=== PATIENT | male | born 1995 | race Hispanic/Latino ===

== ENCOUNTER 2020-12-11 11:34 | Inpatient (IN) | payer OTHER, SELFPAY ==
[~2020-12-11] VITALS: Ht 182.9 cm; Wt 113.4 kg
[2020-12-11 11:51] LABS: APPEARANCE,URINE Clear (CLEAR); BILIRUBIN,URINE Negative (NEGATIVE); COLOR,URINE Yellow (YELLOW); GLUCOSE, URINE (UA) Negative (NEGATIVE); KETONES,URINE Negative (NEGATIVE); LEUKOCYTE ESTERASE ,URINE Negative (NEGATIVE); NITRATE,URINE Negative (NEGATIVE); OCCULT BLOOD,URINE Negative (NEGATIVE); PROTEIN,URINE Negative (NEGATIVE); UROBILINOGEN,URINE 0.2 mg/dL (0.2-1.0)
[2020-12-11 11:58] LABS: BASOPHILS % (AUTO) 0.6 % (0.0-5.0); EOSINOPHILS % (AUTO) 3.9 % (0.0-8.0); LYMPHOCYTES % (AUTO) 24.4 % (21.0-51.0); MEAN CORPUSCULAR HEMOGLOBIN 29.9 pg (27.0-33.0); MEAN CORPUSCULAR HGB CONC 35.3 g/dL (32.0-36.0); MEAN CORPUSCULAR VOLUME 84.6 fL (79-99); MONOCYTES % (AUTO) 7.1 % (3.0-13.0); NEUTROPHILS % (AUTO) 63.3 % (40.0-77.0); PLATELET COUNT (AUTO) 259 K/uL (130-400); RED BLOOD CELL COUNT(AUTO) 5.08 MIL/uL (4.50-6.20); RED CELL DISTRIBUTION WIDTH 12.2 % (11.0-15.5); WHITE BLOOD COUNT (AUTO) 10.5 K/uL (4.8-10.8)
[2020-12-11 12:09] LABS: CREATININE 1.3 mg/dL (0.5-1.5); POTASSIUM 3.8 mmol/L (3.5-5.1)
[2020-12-11] MEDS ORDERED: ONDANSETRON 4MG INJ ONE (12:11)
[2020-12-11] MEDS ORDERED: MORPHINE 2 MG SYG ONE (12:12)
[2020-12-11 12:14] LABS: ALBUMIN 4.5 g/dL (3.5-5.0); BILIRUBIN,TOTAL 0.7 mg/dL (0.2-1.0); TOTAL PROTEIN, SERUM 8.1 g/dL (6.0-8.3)
[2020-12-11] MEDS ORDERED: IOHEXOL-350 75 ML VIAL IV ONE (12:32)
[2020-12-11] MEDS ORDERED: ZOSYN 3.375GM+NS 50ML 50 ML IV ONE ×2 (13:57→19:01)
[2020-12-11] MEDS ORDERED: HYDRALAZINE 20MG/ML VIAL IV PRN (14:15)
[2020-12-11] MEDS ORDERED: ONDANSETRON 4MG INJ IVP PRN (14:15)
[2020-12-11] MEDS ORDERED: MORPHINE 4 MG SYG IV PRN (14:15)
[2020-12-11] MEDS: LACTATED RINGERS 1000ML 1,000 ML IV SCH ×2 (14:15→23:16)
[2020-12-11] MEDS ORDERED: LABETALOL 20MG SYG IV PRN (14:15)
[2020-12-11] MEDS ORDERED: DiphenhydrAMINE HCL 50 MG/ML VIAL IV PRN (14:15)
[2020-12-11] MEDS ORDERED: LACTATED RINGERS 1000ML 1,000 ML IV ONE (16:12)
[2020-12-11] MEDS ORDERED: FAMOTIDINE 20MG VIAL IV ONE (19:01)
[2020-12-11] MEDS: FAMOTIDINE 20MG VIAL IV SCH (19:16)
[2020-12-11] MEDS: ZOSYN 3.375GM+NS 50ML 50 ML IV SCH (19:16)
[2020-12-11] MEDS: KETOROLAC 15MG/ML VIAL (15MG/ML) IV PRN (19:16)
[2020-12-11 20:03] VITALS: BP 117/63
[2020-12-12] VITALS (7 sets, daily range): BP systolic 108–148; BP diastolic 61–78
[2020-12-12] MEDS: KETOROLAC 15MG/ML VIAL (15MG/ML) IV PRN ×3 (01:06→20:11)
[2020-12-12] MEDS: ZOSYN 3.375GM+NS 50ML 50 ML IV SCH ×3 (04:31→20:02)
[2020-12-12 05:22] LABS: BASOPHILS % (AUTO) 0.6 % (0.0-5.0); EOSINOPHILS % (AUTO) 4.2 % (0.0-8.0); HEMATOCRIT 41.5 % (42-54); LYMPHOCYTES % (AUTO) 28.6 % (21.0-51.0); MEAN CORPUSCULAR HEMOGLOBIN 29.3 pg (27.0-33.0); MEAN CORPUSCULAR VOLUME 86.1 fL (79-99); MONOCYTES % (AUTO) 8.8 % (3.0-13.0); NEUTROPHILS % (AUTO) 57.2 % (40.0-77.0); PLATELET COUNT (AUTO) 248 K/uL (130-400); RED BLOOD CELL COUNT(AUTO) 4.82 MIL/uL (4.50-6.20); RED CELL DISTRIBUTION WIDTH 12.2 % (11.0-15.5); WHITE BLOOD COUNT (AUTO) 9.9 K/uL (4.8-10.8)
[2020-12-12 05:31] LABS: CREATININE 1.5 mg/dL (0.5-1.5); POTASSIUM 3.8 mmol/L (3.5-5.1)
[2020-12-12] MEDS: FAMOTIDINE 20MG VIAL IV SCH ×2 (08:45→20:01)
[2020-12-12] MEDS: LACTATED RINGERS 1000ML 1,000 ML IV SCH ×2 (08:46→20:01)
[2020-12-12] MEDS ORDERED: DIATR MEGLU/DIATRIZOATE SODIUM 30 ML BOTTLE ONE (10:27)
[2020-12-12] MEDS ORDERED: IOHEXOL-350 75 ML VIAL IV ONE (15:03)
[2020-12-13 03:47] VITALS: BP 122/65
[2020-12-13] MEDS: ZOSYN 3.375GM+NS 50ML 50 ML IV SCH ×3 (04:26→20:34)
[2020-12-13] MEDS: LACTATED RINGERS 1000ML 1,000 ML IV SCH ×2 (05:20→16:40)
[2020-12-13] MEDS: KETOROLAC 15MG/ML VIAL (15MG/ML) IV PRN ×2 (05:21→22:36)
[2020-12-13 05:24] LABS: BASOPHILS % (AUTO) 0.3 % (0.0-5.0); EOSINOPHILS % (AUTO) 3.9 % (0.0-8.0); HEMATOCRIT 38.7 % (42-54); LYMPHOCYTES % (AUTO) 27.2 % (21.0-51.0); MEAN CORPUSCULAR HEMOGLOBIN 29.5 pg (27.0-33.0); MEAN CORPUSCULAR HGB CONC 34.6 g/dL (32.0-36.0); MEAN CORPUSCULAR VOLUME 85.2 fL (79-99); MONOCYTES % (AUTO) 8.6 % (3.0-13.0); NEUTROPHILS % (AUTO) 59.6 % (40.0-77.0); PLATELET COUNT (AUTO) 240 K/uL (130-400); RED BLOOD CELL COUNT(AUTO) 4.54 MIL/uL (4.50-6.20); RED CELL DISTRIBUTION WIDTH 11.9 % (11.0-15.5); WHITE BLOOD COUNT (AUTO) 9.3 K/uL (4.8-10.8)
[2020-12-13 05:36] LABS: CREATININE 1.3 mg/dL (0.5-1.5); POTASSIUM 3.5 mmol/L (3.5-5.1)
[2020-12-13 08:29] VITALS: BP 118/71
[2020-12-13] MEDS: FAMOTIDINE 20MG VIAL IV SCH ×2 (08:39→20:34)
[2020-12-13 12:26] VITALS: BP 147/73
[2020-12-13 16:04] VITALS: BP 113/69
[2020-12-13 19:36] VITALS: BP 133/78
[2020-12-13 23:23] VITALS: BP 121/82
[2020-12-14] MEDS: LACTATED RINGERS 1000ML 1,000 ML IV SCH (01:53)
[2020-12-14 03:46] VITALS: BP 144/79
[2020-12-14] MEDS: ZOSYN 3.375GM+NS 50ML 50 ML IV SCH (04:34)
[2020-12-14 05:20] LABS: HEMATOCRIT 40.2 % (42-54); MEAN CORPUSCULAR HEMOGLOBIN 29.5 pg (27.0-33.0); MEAN CORPUSCULAR HGB CONC 34.3 g/dL (32.0-36.0); MEAN CORPUSCULAR VOLUME 85.9 fL (79-99); RED BLOOD CELL COUNT(AUTO) 4.68 MIL/uL (4.50-6.20); WHITE BLOOD COUNT (AUTO) 8.5 K/uL (4.8-10.8)
[2020-12-14 05:46] LABS: CREATININE 1.3 mg/dL (0.5-1.5); POTASSIUM 3.8 mmol/L (3.5-5.1)
[2020-12-14] MEDS: FAMOTIDINE 20MG VIAL IV SCH (08:54)
[2020-12-14 09:00] VITALS: BP 126/79
== END 2020-12-14 11:30 | disposition home or self-care (01) | DRG 395 ==
LOC: EDH 11:34 → EDHIP 11:35 → INTOOBSV 11:35 → OBSVTOIN 11:35 → 4AH 16:25 → 3AH 21:01
PROVIDERS: ADMIT Internal Medicine Critical Care Medicine; ATTEND Internal Medicine Critical Care Medicine
DX: K35.80 Unspecified acute appendicitis (principal); K76.0 Fatty (change of) liver, not elsewhere classified; Z20.822 Contact with and (suspected) exposure to COVID-19; E66.9 Obesity, unspecified; Z68.33 Body mass index [BMI] 33.0-33.9, adult
CPT/HCPCS: 36415; 74177; 76705; 80048; 80053; 81003; 83605; 83690; 85025; 85027; 86140; 87426; G0378; J1200; J1885; J2405; J2543; J3490; J7120; Q9963; Q9967; U0003

== ENCOUNTER 2024-03-13 07:22 | Emergency (ER) | payer OTHER ==
[~2024-03-13] VITALS: Ht 182.9 cm; Wt 117.9 kg
[2024-03-13] MEDS: 0.9%NACL 1000ML 1,000 ML IV ONE (08:00)
[2024-03-13 08:14] LABS: BASOPHILS # (AUTO) 0.06 K/uL (0.00-0.20); BASOPHILS % (AUTO) 0.6 % (0.0-5.0); EOSINOPHILS # (AUTO) 0.28 K/uL (0.00-0.70); EOSINOPHILS % (AUTO) 2.8 % (0.0-8.0); HEMATOCRIT 41.9 % (42-54); IMMATURE GRANULOCYTE ABSOLUTE 0.14 K/uL (0-1); LYMPHOCYTES # (AUTO) 2.3 K/uL (1.0-4.8); MEAN CORPUSCULAR HEMOGLOBIN 29.6 pg (27.0-33.0); MEAN CORPUSCULAR HGB CONC 34.8 g/dL (32.0-36.0); MONOCYTES # (AUTO) 0.7 K/uL (0.1-1.0); MONOCYTES % (AUTO) 6.4 % (3.0-13.0); NEUTROPHILS # (AUTO) 6.7 K/uL (1.8-7.7); NEUTROPHILS % (AUTO) 65.8 % (40.0-77.0); PLATELET COUNT (AUTO) 304 K/uL (130-400); RED BLOOD CELL COUNT(AUTO) 4.93 MIL/uL (4.50-6.20); RED CELL DISTRIBUTION WIDTH 11.9 % (11.0-15.5); WHITE BLOOD COUNT (AUTO) 10.2 K/uL (4.8-10.8)
[2024-03-13 08:25] LABS: CREATININE 1.2 mg/dL (0.5-1.3); POTASSIUM 3.7 mmol/L (3.5-5.1)
[2024-03-13 08:30] LABS: ALBUMIN 4.3 g/dL (3.5-5.0); BILIRUBIN,TOTAL 0.3 mg/dL (0.2-1.0); TOTAL PROTEIN, SERUM 7.9 g/dL (6.0-8.3)
[2024-03-13 08:35] LABS: RAPID GROUP A STREP negative (NEGATIVE)
[2024-03-13 08:43] LABS: SARS-CoV-2, RNA, NAAT POSITIVE SARS CoV-2 (NEGATIVE)
[2024-03-13 08:45] LABS: INFLUENZA TYPE A Negative For Type A (NEGATIVE); INFLUENZA TYPE B Negative For Type B (NEGATIVE)
[2024-03-13] MEDS: KETOROLAC 15MG/ML VIAL (15MG/ML) IV ONE (08:56)
[2024-03-13] MEDS: ONDANSETRON 4MG INJ IVP ONE (08:56)
[2024-03-13] MEDS ORDERED: ONDA-243 PO (09:04)
[2024-03-13] MEDS ORDERED: AZIT250T9 PO (09:04)
[2024-03-13 09:07] VITALS: BP 133/74; PULSE 80; RESP 18; O2SAT 99
== END 2024-03-13 09:13 | disposition home or self-care (01) ==
LOC: EDH 07:22
DX: U07.1 COVID-19 (principal); Z79.899 Other long term (current) drug therapy; Z98.890 Other specified postprocedural states
CPT/HCPCS: 99284; 96374; 87635; 96361; 96375; 80053; 85025; 87880; 87804 ×2; 36415; J7030; J2405; J1885

== ENCOUNTER 2024-06-26 02:11 | Emergency (ER) | payer SELFPAY ==
[~2024-06-26] VITALS: Ht 182.9 cm; Wt 117.9 kg
[~2024-06-26 02:11] MED LIST: AZIT250T9 PO; ONDA-243 PO
[2024-06-26 02:36] LABS: RAPID GROUP A STREP negative (NEGATIVE)
[2024-06-26 02:40] LABS: SARS-CoV-2, RNA, NAAT NEGATIVE SARS CoV-2 (NEGATIVE)
[2024-06-26 02:45] LABS: INFLUENZA TYPE A Negative For Type A (NEGATIVE); INFLUENZA TYPE B Negative For Type B (NEGATIVE)
[2024-06-26 02:53] LABS: BASOPHILS # (AUTO) 0.03 K/uL (0.00-0.20); BASOPHILS % (AUTO) 0.3 % (0.0-5.0); EOSINOPHILS # (AUTO) 0.07 K/uL (0.00-0.70); EOSINOPHILS % (AUTO) 0.8 % (0.0-8.0); HEMATOCRIT 42.7 % (42-54); IMMATURE GRANULOCYTE ABSOLUTE 0.05 K/uL (0-1); LYMPHOCYTES # (AUTO) 1.6 K/uL (1.0-4.8); LYMPHOCYTES % (AUTO) 17.4 % (21.0-51.0); MEAN CORPUSCULAR HEMOGLOBIN 29.7 pg (27.0-33.0); MEAN CORPUSCULAR HGB CONC 35.1 g/dL (32.0-36.0); MEAN CORPUSCULAR VOLUME 84.6 fL (79-99); MONOCYTES # (AUTO) 0.3 K/uL (0.1-1.0); MONOCYTES % (AUTO) 3.7 % (3.0-13.0); NEUTROPHILS % (AUTO) 77.2 % (40.0-77.0); PLATELET COUNT (AUTO) 269 K/uL (130-400); RED BLOOD CELL COUNT(AUTO) 5.05 MIL/uL (4.50-6.20); RED CELL DISTRIBUTION WIDTH 11.9 % (11.0-15.5); WHITE BLOOD COUNT (AUTO) 9.1 K/uL (4.8-10.8)
[2024-06-26] MEDS: 0.9%NACL 1000ML 1,000 ML IV ONE (02:55)
[2024-06-26] MEDS: FAMOTIDINE 20MG VIAL IV ONE (02:56)
[2024-06-26] MEDS: ondanSETRON 4MG INJ IVP ONE (02:56)
[2024-06-26] MEDS: ketOROlac 15MG/ML VIAL (15MG/ML) IV ONE (02:56)
[2024-06-26 03:00] LABS: POTASSIUM 3.9 mmol/L (3.5-5.1)
--- NOTE | 2024-06-26 03:35 | ERN ---
General Chief Complaint: Flu Symptoms Stated Complaint: HEADACHE, N/D Time Seen by MD: 02:13 Time Seen by Midlevel: 02:13 Source: patient History of Present Illness Initial Comments Patient is a 29-year-old male with no significant past medical history presenting with multiple complaints. He states that around 2200 last night he began with a generalized headache that is rated 7/10. Shortly after he developed diarrhea and nausea. Denies taking any [id number] medication. He specifically denies any fever, chest pain, shortness for breath, vision changes, focal weakness, or any other symptoms at this time. Allergies: Coded Allergies: No Known Drug Allergies (Verified Allergy, Unknown, 12/11/20) Home Meds Active Scripts Ondansetron (Ondansetron Odt) 4 Mg Tab.rapdis, 4 MG PO BID for 7 Days, #14 TAB Prov:LAUREANO DELGADO 06/26/24 Ondansetron (Ondansetron Odt) 4 Mg Tab.rapdis, 4 MG PO BID for 7 Days, #14 TAB Prov:LAUREANO DELGADO 03/13/24 Azithromycin (Azithromycin) 250 Mg Tablet, 250 MG PO DAILY for 5 Days, #5 TAB Prov:LAUREANO DELGADO 03/13/24 Past Medical History Past Medical History: No Pertinent History Past Surgical History: Other Surgical History Other: PYLOROMYOTOMY ROS Dictation CONSTITUTIONAL: Negative except for HPI HEAD/FACE: Negative except for HPI EENT: Negative except for HPI RESPIRATORY: Negative except for HPI GASTROINTESTINAL/ABDOMINAL: Negative except for HPI GENITOURINARY: Negative except for HPI MUSCULOSKELETAL: Negative except for HPI INTEGUMENTARY: Negative except for HPI NEUROLOGICAL/PSYCH: Negative except for HPI HEMATOLOGIC/LYMPHATIC: Negative except for HPI All Systems Negative, Except as noted above. 13 point review of systems assessed and all negative except for above. Physical Exam Physical Exam Dictation Vital Signs reviewed General Appearance: Alert, oriented x 3, no acute distress, well developed, nourished. Head and Face: non-traumatic. Eyes: PERRL, pink conjunctivas, eyelid no trauma, anterior chamber with arcus senilis. Ears: Pinnas intact and no signs of trauma or erythema ear canals clear and no discharge TM no erythema Nose: No discharge, no bleeding. Oropharynx: Mouth normal, tongue pink, pharynx clear,no erythema, tonsils no exudates, no abscesses noted, mucous membrane moist Neck: Supple, non-tender, no thyromegaly, no masses, no JVD, no bruits Breast:Deferred Chest:No tenderness, no crepitus, no paradoxical movement, no retractions Lungs:Clear, well-ventilated, symmetric, no rales, no wheezing, no rhonchi, no stridor, good breath sounds bilaterally Heart: Regular rate, regular rhythm, no murmur, no gallops Vascular: no peripheral edema, Abdomen: Soft, positive bowel sounds, nondistended, no guarding, nontender, no rebound, no masses no hepatomegaly, no splenomegaly, no Manzano's sign, no hernias. Rectal: Deferred Genital: Deferred Neurological: Normal speech, motor function intact, sensory function intact Musculoskeletal: Neck nontender, full range of motion, back nontender, full range of motion, Extremities: nontender, full range of motion Skin: Color pink, dry, no turgor, no rash, no lacerations, no abrasions, no contusions. Lymphatic: Deferred Results Laboratory and Microbiology Lab and Micro Result Laboratory Tests Test 06/26/24 01:16 06/26/24 01:39 Influenza Type A Antigen Negative For Type A Influenza Type B Antigen Negative For Type B SARS-CoV-2, RNA, NAAT NEGATIVE SARS CoV-2 Group A Streptococcus Rapid negative (NEGATIVE) White Blood Count 9.1 K/uL (4.8-10.8) Red Blood Count 5.05 MIL/uL (4.50-6.20) Hemoglobin 15.0 g/dL (14.0-18.0) Hematocrit 42.7 % (42-54) Mean Corpuscular Volume 84.6 fL (79-99) Mean Corpuscular Hemoglobin 29.7 pg (27.0-33.0) Mean Corpuscular Hemoglobin Concent 35.1 g/dL (32.0-36.0) Red Cell Distribution Width 11.9 % (11.0-15.5) Platelet Count 269 K/uL (130-400) Mean Platelet Volume 11.0 fL (7.5-10.5) H Immature Granulocyte % (Auto) 0.6 % (0-1) Neutrophils (%) (Auto) 77.2 % (40.0-77.0) H Lymphocytes (%) (Auto) 17.4 % (21.0-51.0) L Monocytes (%) (Auto) 3.7 % (3.0-13.0) Eosinophils (%) (Auto) 0.8 % (0.0-8.0) Basophils (%) (Auto) 0.3 % (0.0-5.0) Neutrophils # (Auto) 7.0 K/uL (1.8-7.7) Lymphocytes # (Auto) 1.6 K/uL (1.0-4.8) Monocytes # (Auto) 0.3 K/uL (0.1-1.0) Eosinophils # (Auto) 0.07 K/uL (0.00-0.70) Basophils # (Auto) 0.03 K/uL (0.00-0.20) Absolute Immature Granulocyte (auto 0.05 K/uL (0-1) Nucleated Red Blood Cells 0.0 % (0.0-0.19) Sodium Level 138 mmol/L (136-145) Potassium Level 3.9 mmol/L (3.5-5.1) Chloride Level 102 mmol/L (101-111) Carbon Dioxide Level 29 mmol/L (21-32) Blood Urea Nitrogen 15 mg/dL (7-18) Creatinine 1.0 mg/dL (0.5-1.3) Glomerular Filtration Rate Calc 103 mL/min (>90) Random Glucose 115 mg/dL (70-105) H Total Calcium 9.6 mg/dL (8.5-10.1) Labs Reviewed?: Yes MDM MDM: Patient is a 29-year-old male with no significant past medical history pre senting with multiple complaints. He states that around 2200 last night he began with a generalized headache that is rated 7/10. Shortly after he developed diarrhea and nausea. Denies taking any [id number] medication. He specifically denies any fever, chest pain, shortness for breath, vision changes, focal weakness, or any other symptoms at this time. On physical examination patient is in no acute distress. His GCS is 15. He is alert and oriented x4. His neurological examination is unremarkable. There is no abdominal tenderness. His CBC shows no leukocytosis. His hemoglobin is stable at 15.0. His platelets are normal. His chemistries unremarkable. His respiratory swabs are negative. Patient was given Toradol, Zofran, and Pepcid in the emergency department. On repeat evaluation he states his symptoms have completely resolved. Symptoms most likely due to something he ate earlier in the day. Patient is nontoxic appearing. Patient will be discharged home with supportive management Differential diagnosis: Gastroenteritis, gastritis, electrolyte abnormality, dehydration There are no social concerns with this patient. Prescription drug management Prescriptions will include: None Medical management and examination interpretation discussions were had by me with other qualified healthcare professionals as indicated for the patient's care. ED Course Orders Procedure Category Date Status Time Covid Rna Naat LAB 06/26/24 Complete 02:14 Influenza Type A & B, LAB 06/26/24 Complete Rapid 02:14 Rapid (Group A Strep) LAB 06/26/24 Complete 02:14 Cbc With Differential LAB 06/26/24 Complete 02:46 Basic Metabolic Panel LAB 06/26/24 Complete 02:46 Ondansetron 4mg Inj PHA 06/26/24 Complete (Zofran 4mg Inj) 03:00 Famotidine 20mg Vial PHA 06/26/24 Complete (Pepcid 20mg Vial) 03:00 0.9%Nacl 1000ml (Ns PHA 06/26/24 Complete 1000ml) 03:00 Ketorolac PHA 06/26/24 Complete Tromethamine 15mg/Ml 03:00 Vital Signs Date Time Temp Pulse Resp B/P (MAP) Pulse Ox O2 Delivery O2 Flow Rate FiO2 06/26/24 03:41 98.1 65 16 121/63 97 Room Air* 0 21 06/26/24 02:40 66 16 124/68 96 Room Air* 0 21 06/26/24 02:12 97.5 69 18 134/80 100 Room Air DX & DISP Disposition: Discharge Departure Impression: Primary Impression: Nausea Condition: Stable Scripts Ondansetron (Ondansetron Odt) 4 Mg Tab.rapdis 4 MG PO BID for 7 Days, #14 TAB Prov: LAUREANO DELGADO 06/26/24 Additional Instructions: Your blood work today is unremarkable. You were tested for flu a, flu B, and COVID and have tested negative. Please follow up with your primary care doctor in 2-3 days for repeat evaluation. Return to the ER for any new or worsening symptoms. Referrals: NONE (PCP) Time of Disposition: 02:34 I have reviewed the case, and I agree with, Diagnosis and Plan I performed the substantive portion of the visit. I have reviewed and personally made and approve the management plan that is documented in the note b y myself or the JONNY. I acknowledge for responsibility for the patient's management plan. LAUREANO DELGADO Jun 26, 2024 03:34 BRIANA LAO DO Jun 30, 2024 14:58
[2024-06-26 03:41] VITALS: BP 121/63; PULSE 65; RESP 16; TEMP 98.1; O2SAT 97
== END 2024-06-26 03:45 | disposition home or self-care (01) ==
LOC: EDH 02:11
DX: R11.0 Nausea (principal); Z20.822 Contact with and (suspected) exposure to COVID-19
CPT/HCPCS: 99284; 96374; 96375; 87635; 80048; 85025; 87880; 87804 ×2; 36415; J3490; J2405; J1885

== ENCOUNTER 2025-01-22 20:40 | Emergency (ER) | payer SELFPAY ==
[~2025-01-22] VITALS: Ht 182.9 cm; Wt 113.4 kg
[2025-01-22 21:05] LABS: BASOPHILS # (AUTO) 0.03 K/uL (0.00-0.20); BASOPHILS % (AUTO) 0.4 % (0.0-5.0); EOSINOPHILS # (AUTO) 0.12 K/uL (0.00-0.70); EOSINOPHILS % (AUTO) 1.5 % (0.0-8.0); HEMATOCRIT 43.6 % (42-54); IMMATURE GRANULOCYTE ABSOLUTE 0.03 K/uL (0-1); LYMPHOCYTES # (AUTO) 1.9 K/uL (1.0-4.8); LYMPHOCYTES % (AUTO) 24.3 % (21.0-51.0); MEAN CORPUSCULAR HEMOGLOBIN 30.6 pg (27.0-33.0); MEAN CORPUSCULAR HGB CONC 36.2 g/dL (32.0-36.0); MEAN CORPUSCULAR VOLUME 84.5 fL (79-99); MONOCYTES # (AUTO) 0.6 K/uL (0.1-1.0); MONOCYTES % (AUTO) 7.2 % (3.0-13.0); NEUTROPHILS # (AUTO) 5.2 K/uL (1.8-7.7); NEUTROPHILS % (AUTO) 66.2 % (40.0-77.0); PLATELET COUNT (AUTO) 278 K/uL (130-400); RED BLOOD CELL COUNT(AUTO) 5.16 MIL/uL (4.50-6.20); RED CELL DISTRIBUTION WIDTH 12.1 % (11.0-15.5); WHITE BLOOD COUNT (AUTO) 7.9 K/uL (4.8-10.8)
[2025-01-22] MEDS: LACTATED RINGERS 1000ML IV STA (21:10)
[2025-01-22 21:13] LABS: CREATININE 1.2 mg/dL (0.5-1.3); POTASSIUM 3.9 mmol/L (3.5-5.1)
[2025-01-22] MEDS: ondanSETRON 4MG INJ IVP ONE (21:23)
--- NOTE | 2025-01-22 21:37 | EKG ---
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
--- NOTE | 2025-01-22 21:53 | ERN ---
General Chief Complaint: Anxiety/Panic Attack Stated Complaint: NAUSEA/RAPID HEART RATE 3 DAYS Time Seen by MD: 20:43 Source: patient History of Present Illness Initial Comments Patient is a 29-year-old male with a past medical history of possible fatty liver and hypertension. He comes in because he has had three days of tachycardia and anxious feelings. He states that he has had this problem off and on for several years where he all of a sudden starts to feel like his heart is racing and he is anxious. He does have nausea associated with these symptoms but not any emesis. Sometimes he is able to calm down this tachycardia anxiety sometimes he is unable to. He comes in today because this latest episode has been unremitting for three days. Last episode was a year ago. Allergies: Coded Allergies: No Known Drug Allergies (Verified Allergy, Unknown, 12/11/20) Home Meds Active Scripts Ondansetron (Ondansetron Odt) 4 Mg Tab.rapdis, 4 MG PO BID for 7 Days, #14 TAB Prov:LAUREANO DELGADO 06/26/24 Ondansetron (Ondansetron Odt) 4 Mg Tab.rapdis, 4 MG PO BID for 7 Days, #14 TAB Prov:LAUREANO DELGADO 03/13/24 Azithromycin (Azithromycin) 250 Mg Tablet, 250 MG PO DAILY for 5 Days, #5 TAB Prov:LAUREANO DELGADO 03/13/24 Past Medical History Past Medical History: No Pertinent History Past Surgical History: None Surgical History Other: PYLOROMYOTOMY Constitutional: (-) chills, (-) diaphoresis, (-) fever, (-) malaise, (-) weakness, (-) other documentation EENTM: (-) eye pain, (-) blurred vision, (-) tearing, (-) double vision, (-) ear pain, (-) ear discharge, (-) nose pain, (-) nose congestion, (-) throat pain, (-) Throat swelling, (-) mouth pain, (-) tooth pain, (-) mouth swelling, (-) other documentation Respiratory: (-) cough, (-) orthopnea, (-) short of breath, (-) stridor, (-) wheezing, (-) other documentation Cardiovascular: (+) chest pain, (+) edema, (+) palpitations, (+) syncope, (+) dyspnea on exertion, (+) other documentation (Chest tightness.) Gastrointestinal/Abdominal: (+) nausea Musculoskeletal: (-) Neck pain, (-) back pain, (-) Flank Pain, (-) joint pain, (-) joint swelling, (-) muscle pain, (-) muscle stiffness, (-) gout, (-) other documentation Neuro: (-) altered mental status, (-) headache, (-) syncope, (-) paralysis, (-) numbness, (-) seizure, (-) pre-existing deficit, (-) tremors, (-) weakness, (-) dizziness, (-) slurred speech, (-) vertigo, (-) other documentation Physical Exam General Appearance: (+) mild distress Orientation: (+) alert, (+) oriented x 3 Head/Face Trauma: No Eye: bilateral eye normal inspection, bilateral eye PERRL, bilateral eye EOMI Ear, Nose, Throat: (+) hearing grossly normal, (+) normal ENT inspection, (+) moist mucous membraine Neck: (+) supple Respiratory: (+) chest non-tender, (+) lungs clear, (+) well ventilated Heart: (+) regular, (+) no gallop Vascular: (+) no edema, (+) normal peripheral pulse Gastrointestinal: (+) soft, (+) non-tender, (+) bowel sound present Results Laboratory and Microbiology Lab and Micro Result Laboratory Tests Test 01/22/25 21:00 01/22/25 22:17 White Blood Count 7.9 K/uL (4.8-10.8) Red Blood Count 5.16 MIL/uL (4.50-6.20) Hemoglobin 15.8 g/dL (14.0-18.0) Hematocrit 43.6 % (42-54) Mean Corpuscular Volume 84.5 fL (79-99) Mean Corpuscular Hemoglobin 30.6 pg (27.0-33.0) Mean Corpuscular Hemoglobin Concent 36.2 g/dL (32.0-36.0) H Red Cell Distribution Width 12.1 % (11.0-15.5) Platelet Count 278 K/uL (130-400) Mean Platelet Volume 11.0 fL (7.5-10.5) H Immature Granulocyte % (Auto) 0.4 % (0-1) Neutrophils (%) (Auto) 66.2 % (40.0-77.0) Lymphocytes (%) (Auto) 24.3 % (21.0-51.0) Monocytes (%) (Auto) 7.2 % (3.0-13.0) Eosinophils (%) (Auto) 1.5 % (0.0-8.0) Basophils (%) (Auto) 0.4 % (0.0-5.0) Neutrophils # (Auto) 5.2 K/uL (1.8-7.7) Lymphocytes # (Auto) 1.9 K/uL (1.0-4.8) Monocytes # (Auto) 0.6 K/uL (0.1-1.0) Eosinophils # (Auto) 0.12 K/uL (0.00-0.70) Basophils # (Auto) 0.03 K/uL (0.00-0.20) Absolute Immature Granulocyte (auto 0.03 K/uL (0-1) Nucleated Red Blood Cells 0.0 % (0.0-0.19) Red Blood Cell Morphology See comments Sodium Level 140 mmol/L (136-145) Potassium Level 3.9 mmol/L (3.5-5.1) Chloride Level 105 mmol/L (101-111) Carbon Dioxide Level 27 mmol/L (21-32) Blood Urea Nitrogen 12 mg/dL (7-18) Creatinine 1.2 mg/dL (0.5-1.3) Glomerular Filtration Rate Calc 83 mL/min (>90) Random Glucose 120 mg/dL (70-105) H Total Calcium 10.0 mg/dL (8.5-10.1) Troponin I High Sensitivity 17 ng/L (4-75) Urine Color YELLOW (YELLOW) Urine Appearance CLEAR (CLEAR) Urine pH 7.5 (5.0-8.0) Urine Specific [place] 1.029 (1.001-1.031) Urine Protein 30 mg/dL (NEGATIVE) H Urine Glucose (UA) NEGATIVE mg/dL (NEGATIVE) Urine Ketones >=80 mg/dL (NEGATIVE) Urine Occult Blood NEGATIVE (NEGATIVE) Urine Nitrate NEGATIVE (NEGATIVE) Urine Bilirubin NEGATIVE mg/dL (NEGATIVE) Urine Urobilinogen 0.2 mg/dL (0.2-1.0) Urine Leukocyte Esterase NEGATIVE [place]/uL Urine RBC 2-5 /HPF (0-1) H Urine WBC 2-5 /HPF (0-1) H Urine Squamous Epithelial Cells RARE /HPF (0-2) Urine Bacteria None /HPF (None Seen) MDM Patient with three days of nausea palpitations. He has had them in the past where they occur with sudden onset. A start with a an EKG troponin fluid normal labs. Patient's chemistry panel is normal. Troponin normal. UA normal. Patient's EKG shows a slight sinus they arrhythmia. I can not tell if this is causing his symptoms are not. At the time the EKG was taken the patient was not feeling particularly anxious. Discussing his symptoms and more detail the patient feels not chest pain but chest tightness. They do seem to happen when he is experiencing enormous amount of stress, such as working three jobs at a time while taking care of his sick mother. I hesitate to blame all of this on anxiety. EKG does show a slight sinus arrhythmia. I recommend the patient see his primary care physician and get a referral for a graduate teaching assistant and a heart monitor. Patient does not have a primary care physician and would like to know about r sawces in the community for anxiety care and primary care. ED Course Orders Procedure Category Date Status Time Basic Metabolic Panel LAB 01/22/25 Complete 20:51 Cbc With Differential LAB 01/22/25 Complete 20:51 Urinalysis Profile LAB 01/22/25 Complete 20:52 Lactated Ringers PHA 01/22/25 Complete 1000ml (Lactated 20:51 Ondansetron 4mg Inj PHA 01/22/25 Complete (Zofran 4mg Inj) 21:30 12 Lead Ekg Tracing- EKG 01/22/25 Complete Technical 21:28 Troponin I High LAB 01/22/25 Complete Sensitivity 21:31 Current Medications Medications (Trade) Dose Ordered Sig/Danna Route PRN Reason Start Time Stop Time Status Last Admin Dose Admin Lactated Ringer's (Lactated Ringers 1000ml) 1,000 ml BOLUS STAT IV 01/22/25 20:51 01/22/25 20:53 DC 01/22/25 21:10 Ondansetron HCl (zoFRAN 4MG INJ) 4 mg ONCE ONCE IVP 01/22/25 21:30 01/22/25 21:31 DC 01/22/25 21:23 Vital Signs Date Time Temp Pulse Resp B/P (MAP) Pulse Ox O2 Delivery O2 Flow Rate FiO2 01/22/25 22:40 98.1 76 16 156/80 98 Room Air* 0 21 01/22/25 21:13 98.1 80 16 160/85 98 Room Air* 0 21 01/22/25 20:41 97.5 83 20 162/87 98 Room Air DX & DISP Disposition: Discharge Departure Impression: Primary Impression: Sinus arrhythmia Condition: Stable Additional Instructions: Please return if your symptoms get worse. Please try the breathing exercises and pulse monitoring exercises that I recommended to you. It is possible that you have hyper ventilation syndrome but I still think a graduate teaching assistant may help given the sinus arrhythmia seen on your EKG. Referrals: SELF,REFERRAL (PCP) KALYAN BENAVIDES MD Jan 22, 2025 21:53
[2025-01-22 22:38] LABS: ADD UA MICROSCOPIC YES; APPEARANCE,URINE CLEAR (CLEAR); BILIRUBIN,URINE NEGATIVE (NEGATIVE); COLOR,URINE YELLOW (YELLOW); GLUCOSE, URINE (UA) NEGATIVE (NEGATIVE); KETONES,URINE >=80 mg/dL (NEGATIVE); LEUKOCYTE ESTERASE ,URINE NEGATIVE Leu/uL (NEGATIVE); NITRATE,URINE NEGATIVE (NEGATIVE); OCCULT BLOOD,URINE NEGATIVE (NEGATIVE); PH,URINE 7.5 (5.0-8.0); PROTEIN,URINE 30 mg/dL (NEGATIVE); UROBILINOGEN,URINE 0.2 mg/dL (0.2-1.0)
[2025-01-22 22:40] VITALS: BP 156/80; PULSE 76; RESP 16; TEMP 98.1; O2SAT 98
[2025-01-22 22:42] LABS: MUCUS,URINE FEW LPF (None Seen); SQUAMOUS EPITHELIAL CELL,UR RARE /HPF (0-2)
== END 2025-01-22 23:02 | disposition home or self-care (01) ==
LOC: EDH 20:40
DX: I49.8 Other specified cardiac arrhythmias (principal); Z79.899 Other long term (current) drug therapy
CPT/HCPCS: 99284; 96374; 96361; 84484; 80048; 85025; 81001; 36415; 93005; J7120; J2405